=== PATIENT | female | born 1950 | race Caucasian/White ===

== ENCOUNTER 2020-01-28 12:08 | Emergency (ER) | payer MEDICARE, SELFPAY ==
[2020-01-28 12:23] VITALS: BP 202/108; PULSE 87; RESP 16; O2SAT 98
[2020-01-28 12:30] VITALS: TEMP 37.1
[2020-01-28] MEDS: cloNIDine HCL 0.1 MG TABLET PO (12:46)
--- NOTE | 2020-01-28 12:52 | ED.GENADULT ---
HPI - General Adult General Chief complaint: Unspecified Stated complaint: HPB Source: patient and RN notes reviewed Mode of arrival: ambulatory History of Present Illness HPI narrative: This is a 69-year-old white female that presented today with elevated blood pressure reading. According to patient she was at her dental appointment today with a blood pressure reading of 196/116, 121/118 and 108/117. She was told at that time to go to her primary care physician or . Patient does not have a primary care physician at this time. At the time of her admission her blood pressure reading was 202/108. Patient does not have a history of hypertension. The patient denies SOB, CP, palpitation, extremity numbness, lightheadedness, dizziness, constipation, diarrhea, chills, or fever. Patient educated on signs and symptoms of a stroke and proper diet after being diagnosed with hypertension. She was also instructed to do a blood pressure reading daily and keep a record so when she does visit her primary care physician she will have record of her readings. She was also informed that her medication might possibly be adjusted Related Data Home Medications Medication Instructions Recorded Confirmed amoxicillin 500 mg PO DIRECTED 01/28/20 01/28/20 Allergies Allergy/AdvReac Type Severity Reaction Status Date / Time No Known Allergies Allergy Verified 01/28/20 12:28 Review of Systems Review of Systems: All systems reviewed & are unremarkable except as noted in HPI and below (10 point system review) Exam Narrative: Exam Narrative: GENERAL: This is a well-nourished, well-developed patient, in no apparent distress. HEAD: normocephalic, atraumatic. EYES: PERRL. Sclera clear/white. Vision is grossly intact. EARS: External ears normal, auditory canals clear and without drainage, TMs normal without perforation. Hearing grossly intact. NOSE: External nose normal with no obvious nasal discharge, nares without redness, no rhinorrhea. THROAT: Mucous membranes moist, posterior pharynx clear. NECK: Neck supple, non-tender without lymphadenopathy, masses or thyromegaly. CARDIOVASCULAR: Regular rate and rhythm without murmurs, gallops, or rubs. RESPIRATORY: Clear to auscultation. Breath sounds equal bilaterally. No wheezes, rales, or rhonchi. GASTROINTESTINAL: Abdomen soft, non-tender, nondistended. Bowel sounds are active. No hepato-splenomegaly, or palpable masses. No guarding. SKIN: warm, intact with no suspicious lesions or rash, good texture and turgor. NEURO: awake, alert, and oriented to person, place and time. There were no obvious focal neurologic abnormalities. Steady gait EXTREMITIES: Normal range of motion. No edema. No calf tenderness. Negative Homans sign bilaterally. BACK: Nontender without deformity or crepitance. No flank tenderness. Course Course Emergency Course: Patient given clonidine 0.1 mg before discharge. On discharge patient blood pressure 146/92. Vital Signs Vital signs: Vital Signs Pulse Rate 87 01/28/20 12:23 Respiratory Rate 16 01/28/20 12:23 Blood Pressure 202/108 H 01/28/20 12:23 Pulse Oximetry 98 01/28/20 12:23 Temperature 98.7 F 01/28/20 12:30 Pulse Rate 87 01/28/20 12:23 Respiratory Rate 16 01/28/20 12:23 Blood Pressure 202/108 H 01/28/20 12:23 Pulse Oximetry 98 01/28/20 12:23 Medical Decision Making Vital Signs Vital Signs: Vital Signs Pulse Rate 87 01/28/20 12:23 Respiratory Rate 16 01/28/20 12:23 Blood Pressure 202/108 H 01/28/20 12:23 Pulse Oximetry 98 01/28/20 12:23 Temperature 98.7 F 01/28/20 12:30 Pulse Rate 87 01/28/20 12:23 Respiratory Rate 16 01/28/20 12:23 Blood Pressure 202/108 H 01/28/20 12:23 Pulse Oximetry 98 01/28/20 12:23 Discharge Plan Discharge Clinical Impression: Elevated blood pressure reading Patient Disposition: Home, Self-Care Condition: Stable Instructions: Antibiotic Form, Hypertensive Brenda
--- NOTE | 2020-01-28 12:54 | PC.NURSE ---
1248-- explained to pt about needing to hold her for a little while to see if her pressure goes in the right direction. pt verbalized understanding.
[2020-01-28 13:18] VITALS: BP 146/92
== END 2020-01-28 13:19 | disposition home or self-care (01) ==
PROVIDERS: Emergency Provider Nurse Practitioner
DX: R03.0 Elevated blood-pressure reading, without diagnosis of hypertension (principal)
CPT/HCPCS: 99213; A9270; G0463

== ENCOUNTER 2023-10-23 23:09 | Emergency (ER) | payer MEDICARE, SELFPAY ==
[2023-10-23 23:36] VITALS: BP 140/74; PULSE 78; RESP 16; TEMP 36.2; O2SAT 99
--- NOTE | 2023-10-23 23:38 | ED_ITS ---
HPI - General Adult General Chief complaint: Urogenital-Female Stated complaint: catheter leak Time Seen by Provider: 10/23/23 23:38 History of Present Illness HPI narrative: Patient 73-year-old female who presents emergency department with chief complaint of leaking from Leonard catheter bag. Patient reports she had a tear in the back of her catheter and reports that she had leaking of urine. The patient denies fever denies other symptoms. Related Data Home Medications Medication Instructions Recorded Confirmed amoxicillin 500 mg capsule 500 mg PO DIRECTED 01/28/20 01/28/20 Allergies Allergy/AdvReac Type Severity Reaction Status Date / Time No Known Allergies Allergy Verified 01/28/20 12:28 Review of Systems Review of Systems: A 10 system review of systems was completed on the patient and is negative except for what is stated in the HPI. Nursing and ancillary documentation was reviewed. Exam Narrative: GENERAL: Well-appearing, well-nourished, and in no acute distress. HEAD: Normocephalic, atraumatic. EYES: PERRLA and EOMI. ENT: Nares clear, no rhinorrhea or epistaxis. Mucous membranes moist. NECK: Supple. CHEST: Clear to auscultation. No respiratory distress. HEART: Regular rate and rhythm. No murmur heard. Normal peripheral pulses. ABDOMEN: Soft, nontender, nondistended, normal active bowel sounds. EXTREMITIES: Normal range of motion. No edema. : Leonard catheter in place, bag has a leak SKIN: Warm, dry, no rash. NEURO: No focal deficits. Alert and oriented x3. PSYCH: Normal mood and affect. Medical Decision Making [facility] Narrative Medical decision making narrative: Differential diagnosis includes catheter malfunction, The bag was changed and the patient is asymptomatic patient discharged home Discharge Plan Discharge Clinical Impression: Malfunction of Leonard catheter Patient Disposition: Home, Self-Care Condition: Stable Instructions: Antibiotic Form, Leonard Catheter Placement and Care (ED) Prescriptions: No Action amoxicillin 500 mg capsule 500 mg PO DIRECTED amlodipine [Norvasc] 5 mg tablet 5 mg PO DAILY Qty: 30 0RF Follow-up/Referrals: UNKNOWN,DOCTOR [Non-Staff] -
[2023-10-24 00:16] VITALS: BP 142/84; PULSE 66; RESP 18; O2SAT 100
--- NOTE | 2023-10-24 00:29 | PC.NURSE ---
catheter bag had small hole at bottom. Patient reports no further illness or traumas.
== END 2023-10-24 00:31 | disposition home or self-care (01) ==
LOC: ANHED 23:41
PROVIDERS: Emergency Provider Emergency Medicine
DX: T83.038A Leakage of other urinary catheter, initial encounter (principal)
CPT/HCPCS: 99282